=== PATIENT | male | born 1990 | race American Indian/Alaskan Native ===

== ENCOUNTER 2017-08-10 18:09 | Emergency (ER) | payer OTHER ==
[2017-08-10 18:40] VITALS: BMI 22.4
--- NOTE | 2017-08-10 19:08 | ED PDOC ---
Arrival/HPI - General Chief Complaint: Lower Extremity Problem/Injury Time Seen by Provider: 08/10/17 19:04 Historian: Patient - History of Present Illness Narrative History of Present Illness (Text): 08/10/17 19:05 26yo male with pmhx of Asthma who present with complaint of left knee pain s/p trauma. states he tripped over a pot hole and fell, injuring his left knee. States he is able to ambulate, but with pain. He came to ED for the persistent pain. He did not take any medication for the pain. He denies any other complaint. Past Medical History - Provider Review Nursing Documentation Reviewed: Yes - Infectious Disease Hx of Infectious Diseases: None - Cardiac Hx Cardiac Disorders: No - Pulmonary Hx Respiratory Disorders: Yes Hx Asthma: Yes - Neurological Hx Neurological Disorder: No - HEENT Hx HEENT Disorder: No - Renal Hx Renal Disorder: No - Endocrine/Metabolic Hx Endocrine Disorders: No - Hematological/Oncological Hx Blood Disorders: No - Integumentary Hx Dermatological Disorder: No - Musculoskeletal/Rheumatological Hx Musculoskeletal Disorders: No - Gastrointestinal Hx Gastrointestinal Disorders: No - Genitourinary/Gynecological Hx Genitourinary Disorders: No - Psychiatric Hx Psychophysiologic Disorder: No Hx Substance Use: Yes (Marijuana) Family/Social History - Physician Review Nursing Documentation Reviewed: Yes Family/Social History: Unknown Family HX Smoking Status: Light Smoker < 10 Cigarettes Daily Hx Alcohol Use: Yes Frequency of alcohol use: Socially Hx Substance Use: Yes (Marijuana) Allergies/Home Meds Allergies/Adverse Reactions: Allergies No Known Allergies Allergy (Verified 08/10/17 18:40) Review of Systems - Physician Review All systems were reviewed & negative as marked: Yes - Review of Systems Constitutional: Normal Eyes: Normal ENT: Normal Respiratory: Normal Cardiovascular: Normal Gastrointestinal: Normal Genitourinary Male: Normal Musculoskeletal: Arthralgias (Left knee pain) Skin: Normal Neurological: Normal Endocrine: Normal Hemo/Lymphatic: Normal Psychiatric: Normal Physical Exam Vital Signs Reviewed: Yes Vital Signs Temp Pulse Resp BP Pulse Ox 08/10/17 18:10 98.9 F 66 18 143/71 99 Temperature: Afebrile Blood Pressure: Normal Pulse: Regular Respiratory Rate: Normal Appearance: Positive for: Well-Appearing, Non-Toxic, Comfortable Pain Distress: None Mental Status: Positive for: Alert and Oriented X 3 - Systems Exam Head: Present: Atraumatic, Normocephalic Pupils: Present: PERRL Extroacular Muscles: Present: EOMI Conjunctiva: Present: Normal Mouth: Present: Moist Mucous Membranes Neck: Present: Normal Range of Motion Respiratory/Chest: Present: Clear to Auscultation, Good Air Exchange. No: Respiratory Distress, Accessory Muscle Use Cardiovascular: Present: Regular Rate and Rhythm, Normal S1, S2. No: Murmurs Abdomen: No: Tenderness, Distention, Peritoneal Signs Back: Present: Normal Inspection Upper Extremity: Present: Normal Inspection. No: Cyanosis, Edema Lower Extremity: Present: NORMAL PULSES, Normal ROM (with pain on flexion), Tenderness (Over inferior aspect of left anterior knee), Neurovascularly Intact. No: Edema, Swelling Neurological: Present: GCS=15, CN II-XII Intact, Speech Normal Skin: Present: Warm, Dry, Normal Color. No: Rashes Psychiatric: Present: Alert, Oriented x 3, Normal Insight, Normal Concentration Medical Decision Making ED Course and Treatment: 08/10/17 19:48 Pt's pain was controlled in ED with medication. Pt was ambulatory. Left knee xray - No acute fracture/dislocation Knee immobiler placed PT referred to ortho. - RAD Interpretation Radiology Orders: 08/10/17 19:04 KNEE WITH PATELLA LEFT 3 VIEW [RAD] Stat - Medication Orders Current Medication Orders: Discontinued Medications Ketorolac Tromethamine (Toradol) 60 mg IM STAT STA Stop: 08/10/17 19:06 Last Admin: 08/10/17 19:24 Dose: 60 mg MAR Pain Assessment Document 08/10/17 19:24 MS (Rec: 08/10/17 19:24 MS [id number]) Pain Reassessment Is this a pain reassessment? No Sleep Is patient sleeping during reassessment? No Presence of Pain Presence of Pain Yes Pain Scale Used Pain Scale Used Numeric Location Pain Location Body Site Knee Description Description Constant Intensity of Pain at present 7 IM Administration Charges Document 08/10/17 19:24 MS (Rec: 08/10/17 19:24 MS [id number]) Injection Site MAR Injection Site Left Deltoid Charges for Administration # of IM Administrations 1 Disposition/Present on Arrival - Present on Arrival Any Indicators Present on Arrival: No History of DVT/PE: No History of Uncontrolled Diabetes: No Urinary Catheter: No History of Decub. Ulcer: No History Surgical Site Infection Following: None - Disposition Have Diagnosis and Disposition been Completed?: Yes Diagnosis: Knee sprain Disposition: HOME/ ROUTINE Disposition Time: 19:50 Patient Plan: Discharge Condition: STABLE Discharge Instructions (ExitCare): Knee Sprain (DC) Additional Instructions: Follow up with your PMD/Orthopedist Rest, ice, compress and elevated Return to ED for nay new or worsening symptoms Prescriptions: Ibuprofen [Motrin Tab] 600 mg PO Q6 #20 tab Referrals: Jailene Quiroga MD [Primary Care Provider] - Follow up with primary Ronak Mclean MD [Staff Provider] - Follow up with primary Forms: [employer] (Scottish)
[2017-08-10 19:09] VITALS: PULSE 66; TEMP 98.9; O2SAT 99
[2017-08-10 20:29] VITALS: BP 140/72; RESP 16
--- NOTE | 2017-08-11 08:32 | RAD ---
PROCEDURE: Left Knee Radiographs. HISTORY: Pain. COMPARISON: None. FINDINGS: BONES: No acute fracture or destructive bony lesion identified. JOINTS: Normal. No osteoarthritis. JOINT EFFUSION: None. OTHER FINDINGS: None. IMPRESSION: Unremarkable radiographs of the left knee.
== END 2017-08-10 20:28 | disposition home or self-care (01) ==
LOC: ED 18:09
DX: S83.92XA Sprain of unspecified site of left knee, initial encounter (principal); W01.0XXA Fall on same level from slipping, tripping and stumbling without subsequent striking against object, initial encounter; F17.210 Nicotine dependence, cigarettes, uncomplicated
CPT/HCPCS: 73562; 96372; 99283; J1885

== ENCOUNTER 2017-08-11 22:35 | Emergency (ER) | payer OTHER ==
[2017-08-11 22:35] VITALS: BMI 22.4
--- NOTE | 2017-08-11 23:20 | ED PDOC ---
Arrival/HPI <Rodrigo Bravo - Last Filed: 08/12/17 00:54> - History of Present Illness Time/Duration: 24 hours Symptom Onset: Gradual Symptom Course: Unchanged Quality: Aching <Charles De La Garza - Last Filed: 08/12/17 01:01> - General Chief Complaint: Back Pain - History of Present Illness Narrative History of Present Illness (Text): Patient is a 26 year old with a past medical history of asthma who presents to the emergency department for evaluation and treatment for low back pain which began this morning with no specific provoking event. It is important to note that the patient experienced left knee pain s/p trauma and was diagnosed with a left knee sprain. The back pain remains localized to the lumbosacral region. Pain is characterized as being dull in nature. Denies associated urinary/fecal incontience and numbness in the bilateral groin region. Further denies fever, chills, chest pain, SOB, abdominal pain, nausea, vomiting, diarrhea, constipation, and urinary symptoms. 08/11/17 23:25 (Charles De La Garza) Past Medical History - Provider Review Nursing Documentation Reviewed: Yes - Travel History Have you recently traveled outside [place] w/in the past 3 mons?: No - Infectious Disease Hx of Infectious Diseases: None - Cardiac Hx Cardiac Disorders: No - Pulmonary Hx Respiratory Disorders: Yes Hx Asthma: Yes - Neurological Hx Neurological Disorder: No - HEENT Hx HEENT Disorder: No - Renal Hx Renal Disorder: No - Endocrine/Metabolic Hx Endocrine Disorders: No - Hematological/Oncological Hx Blood Disorders: No - Integumentary Hx Dermatological Disorder: No - Musculoskeletal/Rheumatological Hx Musculoskeletal Disorders: No - Gastrointestinal Hx Gastrointestinal Disorders: No - Genitourinary/Gynecological Hx Genitourinary Disorders: No - Psychiatric Hx Psychophysiologic Disorder: No Hx Substance Use: Yes (Marijuana) - Anesthesia Hx Anesthesia: No Hx Anesthesia Reactions: No Hx Malignant Hyperthermia: No <Charles De La Garza - Last Filed: 08/12/17 01:01> Family/Social History - Physician Review Nursing Documentation Reviewed: Yes Family/Social History: Unknown Family HX Smoking Status: Light Smoker < 10 Cigarettes Daily Hx Alcohol Use: Yes Hx Substance Use: Yes (Marijuana) <Charles De La Garza - Last Filed: 08/12/17 01:01> Allergies/Home Meds <Rodrigo Bravo - Last Filed: 08/12/17 00:54> <Charles De La Garza - Last Filed: 08/12/17 01:01> Allergies/Adverse Reactions: Allergies No Known Allergies Allergy (Verified 08/10/17 18:40) Review of Systems - Review of Systems Constitutional: Normal Eyes: Normal ENT: Normal Respiratory: Normal Cardiovascular: Normal Gastrointestinal: Normal Genitourinary Male: Normal Musculoskeletal: Back Pain (lumbosacral region) Skin: Normal Neurological: Normal Endocrine: Normal Hemo/Lymphatic: Normal Psychiatric: Normal <Charles De La Garza - Last Filed: 08/12/17 01:01> Physical Exam Temperature: Afebrile Blood Pressure: Hypertensive Pulse: Regular Respiratory Rate: Normal Appearance: Positive for: Well-Appearing, Non-Toxic, Comfortable Pain Distress: None Mental Status: Positive for: Alert and Oriented X 3 - Systems Exam Head: Present: Atraumatic, Normocephalic Pupils: Present: PERRL Extroacular Muscles: Present: EOMI Conjunctiva: Present: Normal Mouth: Present: Moist Mucous Membranes Neck: Present: Normal Range of Motion Respiratory/Chest: Present: Clear to Auscultation, Good Air Exchange. No: Respiratory Distress, Accessory Muscle Use Cardiovascular: Present: Regular Rate and Rhythm, Normal S1, S2. No: Murmurs Abdomen: No: Tenderness, Distention, Peritoneal Signs Back: Present: Normal Inspection, Other. No: CVA Tenderness, Midline Tenderness , Paraspinal Tenderness Upper Extremity: Present: Normal Inspection. No: Cyanosis, Edema Lower Extremity: Present: Normal Inspection. No: Edema Neurological: Present: GCS=15, CN II-XII Intact, Speech Normal Skin: Present: Warm, Dry, Normal Color. No: Rashes Psychiatric: Present: Alert, Oriented x 3, Normal Insight, Normal Concentration <Charles De La Garza - Last Filed: 08/12/17 01:01> Vital Signs Temp Pulse Resp BP Pulse Ox 08/11/17 22:35 98.5 F 82 18 156/67 H 96 Medical Decision Making <Rodrigo Bravo - Last Filed: 08/12/17 00:54> <Charles De La Garza - Last Filed: 08/12/17 01:01> ED Course and Treatment: Impression: Pt seen and evaluated with medical charge entry specialist. Pt, whose past medical history includes asthma, presented for lower back pain. Aware and agree with HPI, clinical findings, plan, and management. Plan: -- XR Lumbar Spine -- XR Thoracolumbar -- Flexeril -- Toradol -- Reassess and disposition (Rodrigo Bravo) Assessment and Plan: Patient is a 26 year old with a past medical history of asthma who presents to the emergency department for evaluation and treatment for low back pain. 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 No Sleep Is patient sleeping during reassessment? No Presence of Pain Presence of Pain Yes Pain Scale Used Pain Scale Used Numeric Location Upper or Lower Lower Pain Location Body Site Back Description Description Constant Intensity of Pain at present 6 IM Administration Charges Document 08/11/17 23:22 MS (Rec: 08/11/17 23:23 MS [id number]) Injection Site MAR Injection Site Left Deltoid Charges for Administration # of IM Administrations 1 - PA / CAR STOWER / Resident Statement / has reviewed & agrees with the documentation as recorded. ELISE has examined the patient and agrees with the treatment plan. <Rodrigo Bravo - Last Filed: 08/12/17 00:54> Disposition/Present on Arrival <Rodrigo Bravo - Last Filed: 08/12/17 00:54> - Present on Arrival Any Indicators Present on Arrival: No History of DVT/PE: No History of Uncontrolled Diabetes: No Urinary Catheter: No History of Decub. Ulcer: No History Surgical Site Infection Following: None - Disposition Have Diagnosis and Disposition been Completed?: Yes Disposition Time: 00:58 Patient Plan: Discharge <Charles De La Garza - Last Filed: 08/12/17 01:01> - Disposition Diagnosis: Back pain Disposition: HOME/ ROUTINE Condition: GOOD Additional Instructions: RIGOBERTO ORTIZ, thank you for letting us take care of you today. Your provider was Rodrigo Bravo MD and you were treated for BACK PAIN. The emergency medical care you received today was directed at your acute symptoms. If you were prescribed any medication, please fill it and take as directed. It may take several days for your symptoms to resolve. Return to the Emergency Department if your symptoms worsen, do not improve, or if you have any other problems. Please contact your doctor or call one of the physicians/clinics you have been referred to that are listed on the Patient Visit Information form that is included in your discharge packet. Bring any paperwork you were given at discharge with you along with any medications you are taking to your follow up visit. Our treatment cannot replace ongoing medical care by a primary care provider outside of the emergency department. Thank you for allowing the [facility] team to be part of your care today. If you had an X-Ray or CT scan: A Radiologist will review the ED reading if any change in treatment is needed we will contact you. If you had a blood, urine, or wound culture: It will take several days for the results, if any change in treatment is needed we will contact you. If you had an STI test: It will take 48 hours for the results. Please call after 1 week if you have not heard back. Prescriptions: Cyclobenzaprine [Flexeril] 5 mg PO TID PRN 7 Days tab PRN Reason: Muscle Spasm Ibuprofen [Wal-Profen] 800 mg PO TID PRN 7 Days tablet PRN Reason: Pain, Moderate (4-7) Referrals: Jailene Quiroga MD [Primary Care Provider] - Follow up with primary Forms: [employer] (Swazi)
[2017-08-12 01:09] VITALS: BP 148/83; PULSE 88; RESP 16; TEMP 98.3; O2SAT 99
--- NOTE | 2017-08-12 08:38 | RAD ---
PROCEDURE: Radiographs of the Lumbar Spine. HISTORY: pain COMPARISON: No prior. FINDINGS: BONES: Normal alignment. No listhesis. No fracture. DISC SPACES: Unremarkable. OTHER FINDINGS: None. IMPRESSION: Unremarkable radiographs of the lumbar spine.
--- NOTE | 2017-08-12 08:38 | RAD ---
HISTORY: pain COMPARISON: No prior. FINDINGS: BONES: Alignment maintained. No fracture. DISC SPACES: Normal. SOFT TISSUES: Normal. OTHER FINDINGS: None. IMPRESSION: Normal radiographs of the thoracic spine.
== END 2017-08-12 01:08 | disposition home or self-care (01) ==
LOC: ED 22:35
DX: M54.5 Low back pain (principal); F17.210 Nicotine dependence, cigarettes, uncomplicated
CPT/HCPCS: 72070; 72100; 96372; 99282; J1885